=== PATIENT | female | born 1980 | race Caucasian/White ===

== ENCOUNTER 2022-07-10 08:01 | Outpatient (CLI) | payer OTHER, SELFPAY ==
--- NOTE | ~2022-07-10 | US_ITS ---
EXAMINATION: US abdomen limited DATE: 07/10/2022 08:27 INDICATION: Left upper quadrant pain TECHNIQUE: Multiple grayscale and Doppler ultrasound images of the left upper quadrant were obtained. COMPARISON: CT, 07/04/2013 FINDINGS: The spleen measures 12.6 cm. There is a 6 mm hypoechoic area of the spleen which is too sma ll to characterize but likely represents a benign finding such as a cyst or lymphangioma. The left ki dney is normal in appearance and measures 12.4 x 5.3 x 5.4 cm. IMPRESSION: 1. No sonographic correlate for the patient's symptoms. Reviewed, dictated and finalized at location A. [facility] [address]
--- NOTE | ~2022-07-10 | CT_ITS ---
EXAMINATION:CT diagnostic chest wo con DATE: 07/10/2022 08:35 INDICATION: Pulmonary nodule. TECHNIQUE: Computed tomography (CT) of the chest was performed without intravenous contrast. Automate d exposure control and iterative reconstruction technique were employed. The dose-length product (DLP ) was 132.38 mGy-cm. COMPARISON: Chest CT 05/06/2010 FINDINGS: A calcified right lung nodule is consistent with old granulomatous disease. There is a 3 mm nodule in right middle lobe, likely benign. There is a pneumatocele in right lower lobe. No pleural effusion. The heart size is normal. No pericardial effusion. There is diffuse hepatic steatosis. Ther e is mild thoracic spondylosis. IMPRESSION: 1. Benign lung nodules. Reviewed, dictated and finalized at location A. [employer] IMPRESSION: 1. Benign lung nodules.
== END 2022-07-10 08:02 ==
PROVIDERS: PCP Pediatrics; Visit Provider Nurse Practitioner Family
DX: R10.12 Left upper quadrant pain (principal); R07.9 Chest pain, unspecified; R91.1 Solitary pulmonary nodule; M25.50 Pain in unspecified joint; G89.4 Chronic pain syndrome; R53.82 Chronic fatigue, unspecified
CPT/HCPCS: 71250; 76705

== ENCOUNTER → 2023-01-30 10:22 | Outpatient (CLI) | payer BC, SELFPAY ==
--- NOTE | ~2023-01-30 | US_ITS ---
US abdomen limited 01/30/2023 10:47 Indication: Left upper quadrant pain Procedure: High-resolution Limited ultrasound of the left upper abdomen Comparison: Ultrasound dated 07/10/2022 Findings: Stable small 7 x 5 x 5 mm hypoechoic splenic mass, most likely benign. Spleen measures 11.1 cm. Left renal echotexture is unremarkable without hydronephrosis, mass or stone. Left kidney measur es 10.7 cm. Impression: 1: Stable small 7 mm hypoechoic splenic mass, most likely benign cyst or hemangioma. Reviewed, dictated and finalized at location L. Impression: 1: Stable small 7 mm hypoechoic splenic mass, most likely benign cyst or sarah ioma.
== END ==
PROVIDERS: PCP Nurse Practitioner Family; Visit Provider Nurse Practitioner Family
DX: R10.12 Left upper quadrant pain (principal); R91.1 Solitary pulmonary nodule; R53.82 Chronic fatigue, unspecified; G89.4 Chronic pain syndrome; D73.4 Cyst of spleen
CPT/HCPCS: 76705

== ENCOUNTER → 2023-02-10 08:58 | Outpatient (CLI) | payer BC, SELFPAY ==
--- NOTE | ~2023-02-10 | MM_ITS ---
EXAMINATION: MM screening [facility] BI w thom HISTORY: Screening mammogram TECHNIQUE: Craniocaudal and mediolateral oblique 3-D tomosynthesis images were obtained and synthetic 2-D images were generated. CAD analysis was submitted and interpreted. COMPARISON: 05/2010 diagnostic left mammogram and left breast ultrasound examination BREAST PARENCHYMAL COMPOSITION: There are scattered areas of fibroglandular density. FINDINGS: History of prior benign 10:00 left breast biopsy in 2010. There is a 10 mm circumscribed mass in the upper outer quadrant left breast. Diagnostic left mammogra m and left breast ultrasound examination are recommended. No suspicious mass, architectural distortion, microcalcifications, skin thickening or retraction of e ither breast is noted otherwise. IMPRESSION: 1. 10 mm upper outer quadrant left breast mass 2. Diagnostic left mammogram and left breast ultrasound examination are recommended. BI-RADS Category 0: Incomplete: Needs additional imaging evaluation. Reviewed, dictated and finalized at location A. IMPRESSION: 1. 10 mm upper outer quadrant left breast mass 2. Diagnostic left mammogram and left breast ultrasound examination are recomme nded. BI-RADS Category 0: Incomplete: Needs additional imaging evaluation.
== END ==
PROVIDERS: PCP Nurse Practitioner Family; Visit Provider Nurse Practitioner Family
DX: Z12.31 Encounter for screening mammogram for malignant neoplasm of breast (principal); R92.8 Other abnormal and inconclusive findings on diagnostic imaging of breast
CPT/HCPCS: 77063; 77067

== ENCOUNTER → 2023-02-13 11:51 | Outpatient (CLI) | payer BC, OTHER, SELFPAY ==
--- NOTE | ~2023-02-13 | MMUS_ITS ---
Corrected Report Order # Associated See Bolded Text 02/13/2023 SLJ This report was recreated on 02/13/2023. Original report was signed by signed by Usman Jay M.D. on 02/13/2023 12:48 CDT . EXAMINATION: MM diagnostic alyssa LT w thom , US breast LT limited HISTORY: 10 mm upper outer quadrant left breast mass reported on 02/10/2023 screening mammogram TECHNIQUE: Additional 3-D tomosynthesis images of the left breast were performed and synthetic 2-D images were generated. CAD analysis was submitted and interpreted. High resolution upper outer quadrant left breast ultrasound was performed. COMPARISON: 02/10/2023 bilateral screening mammogram 1. diagnostic left mammogram FINDINGS: MAMMOGRAPHIC FINDINGS: There is an approximately 8.5 x 9.5 mm circumscribed oval mass in the upper outer quadrant of the left breast at mid depth. There is halo sign (coned compression MLO Tomosynthesis image 18/80), usually associated with benign lesions. ULTRASOUND: 2:00 4 cm from nipple: There is a 6.9 x 9.3 x 9 mm circumscribed solid lesion with fatty hilum with vascularity, with the appearance of a lymph node. The cortex is relatively uniform thickness and echogenicity. There is no suspicious shadowing. IMPRESSION: 1. Probable benign lymph node at 2:00 4 cm from nipple 2. 6 month diagnostic left mammogram and left breast ultrasound follow-up are recommended BI-RADS category 3, probably benign findings. Reviewed, dictated and finalized at location A. MTDD IMPRESSION: 1. Probable benign lymph node at 2:00 4 cm from nipple 2. 6 month diagnostic left mammogram and left breast ultrasound follow-up are r ecommended BI-RADS category 3, probably benign findings.
== END ==
PROVIDERS: PCP Nurse Practitioner Family; Visit Provider Nurse Practitioner Family
DX: N63.21 Unspecified lump in the left breast, upper outer quadrant (principal); R92.8 Other abnormal and inconclusive findings on diagnostic imaging of breast; N64.9 Disorder of breast, unspecified
CPT/HCPCS: 76642; 77061; 77062; 77065; 77066; G0279

== ENCOUNTER 2023-04-20 13:29 | Outpatient (CLI) | payer BC, OTHER, SELFPAY ==
--- NOTE | ~2023-04-20 | CT_ITS ---
EXAMINATION: CT soft tissue neck w con DATE: 04/20/2023 13:49 INDICATION: Neck swelling. Right supraclavicular lymphadenopathy. TECHNIQUE: Computed tomography (CT) of the neck was performed with 75 mL Omnipaque-350 intravenous co ntrast. Automated exposure control and iterative reconstruction technique were employed. The dose-servando gth product was 402.06 mGy-cm. COMPARISON: None FINDINGS: There are no pathologically enlarged lymph nodes. There is minimal plaque in the proximal i nternal carotid arteries with 0% stenosis relative to normal distal artery lumen diameters. There is moderate spondylosis at C5-C6 and mild spondylosis at other levels. IMPRESSION: 1. No lymphadenopathy. Reviewed, dictated and finalized at location A. [employer] IMPRESSION: 1. No lymphadenopathy.
== END 2023-04-20 13:30 ==
LOC: MICIMG 13:30
PROVIDERS: PCP Pediatrics; Visit Provider Pediatrics
DX: R22.1 Localized swelling, mass and lump, neck (principal)
CPT/HCPCS: 70491; Q9967

== ENCOUNTER 2023-05-04 04:03 | Day surgery (SDC) | payer OTHER, BC, SELFPAY ==
[2023-04-13 09:47] VITALS: BMI 37.8
--- NOTE | 2023-05-02 09:56 | SUR.PREOP ---
Patient called regarding upcoming procedure. Message left on pt's voicemail regarding appointment times.
[2023-05-04] MEDS: LACTATED RINGERS 1,000 ML 150 ML IV CONT (07:54)
[2023-05-04 07:56] VITALS: BP 142/89; PULSE 69; RESP 16; TEMP 36.6; O2SAT 100
--- NOTE | 2023-05-04 08:18 | P.HP_ITS ---
History of Present Illness History of Present Illness Consent: Risks, benefits, and alternatives have been discussed and questions answered. Patient agrees to proceed with procedure. Chief complaint: Epigastric Abdominal Pain Narrative: Brittney Garcia is a 42 year old female Presents for both colonoscopy and EGD. Patient reports a vague left upper quadrant abdominal pain. Pain located at the edge of the left ribcage. It occurs intermittently sometimes for various periods of time. Knots particularly related to eating or with activity. Colonoscopy an EGD or requested to evaluate more thoroughly. Patient also presents for neoplasia screening because of her age. Family history noncontributory. Review of Systems Review of Systems: Review of systems noncontributory. [facility] Family History Family History (Updated 01/01/14 @ 07:13 by DOCTOR UNKNOWN) Mother Hypertension Grandparent Malignant neoplasm of prostate Other Diabetes mellitus Family history of allergic disorder Family history of cardiovascular disease Family history of coronary artery disease Social History Social History (Updated 02/27/23 @ 15:22 by Carole Barahona MA) Smoking packs per day: 0 Smoking cigarettes per day: 0.0 Smoking status: Never smoker Second hand tobacco smoke exposure: No Alcohol intake: current Alcohol use details: Rarely Substance use: never Substance use type: does not use Lack of Transportation: No Lack of Food: Never True Current Housing: I Have Housing Concerned About Future Housing: No Difficulty Paying Gas/Electric Bills: No Difficulty Paying for Meds: No Currently Unemployed: No Education: Bachelor's Degree Difficulty w/ Childcare or Family Care: No Living arrangements: other Additional living arrangements comments: with sp Meds Home Medications and Allergies Home Medications Medication Instructions Recorded Confirmed Type No Home Medications 02/27/23 04/13/23 History Allergies Allergy/AdvReac Type Severity Reaction Status Date / Time amoxicillin Allergy Unknown Rash Verified 05/04/23 07:43 Vital Signs Vital Signs - 24 hr 05/04/23 07:56 Temperature 97.9 F Pulse Rate 69 Respiratory Rate 16 Blood Pressure 142/89 H Pulse Oximetry 100 Oxygen Delivery Room Air Exam Narrative: Physical exam reveals patient be alert. Vital signs stable. HEENT exam is unremarkable. Patient is anicteric. Lungs are clear. Heart without murmur. Abdomen reveals patient be overweight. Bowel sounds are present soft nontender with no hepatosplenomegaly. Patient locates abdominal discomfort to the left upper rib margin. Assessment and Plan Assessment and plan (1) Abdominal pain: Qualifiers: Abdominal location: right upper quadrant Qualified Code(s): R10.11 - Right upper quadrant pain Code(s): R10.9 - Unspecified abdominal pain Status: Acute Assessment and Plan: Patient has a vague abdominal discomfort left upper quadrant. This may represent musculoskeletal pain. Colonoscopy an EGD are requested to assess more thoroughly. This will be performed today. Patient would also benefit from neoplasia screening given her age.
--- NOTE | 2023-05-04 08:48 | P.PNAN_ITS ---
Anes - Initial Pre Proc Eval Procedure: Operation Date: 05/04/23 09:00 Proposed Procedures p Esophagogastroduodenoscopy & Colonoscopy - Neeraj Winters MD Date/Time: 05/04/23 08:48 Surgeon: Neeraj Winters MD Pre Op Diagnosis: Epigastric Abdominal Pain Patient Data Age: 42 Gender: F Height: 1.55 m Weight: 91.9 kg Last Vital Signs Temp 97.9 F 05/04/23 07:56 Pulse 69 05/04/23 07:56 Resp 16 05/04/23 07:56 BP 142/89 H 05/04/23 07:56 Pulse Ox 100 05/04/23 07:56 O2 Del Method Room Air 05/04/23 07:56 Allergies Allergy/AdvReac Type Severity Reaction Status Date / Time amoxicillin Allergy Unknown Rash Verified 05/04/23 07:43 Home Medications Medication Instructions Recorded Confirmed Type No Home Medications 02/27/23 04/13/23 History Patient hx anesthesia problems: none Family hx anesthesia problems: none Results Review: All pre-operative results and documents have been reviewed as part of the pre-operative evaluation. [facility] Family History Family History (Updated 01/01/14 @ 07:13 by DOCTOR UNKNOWN) Mother Hypertension Grandparent Malignant neoplasm of prostate Other Diabetes mellitus Family history of allergic disorder Family history of cardiovascular disease Family history of coronary artery disease Social History Social History (Updated 02/27/23 @ 15:22 by Carole Barahona MA) Smoking packs per day: 0 Smoking cigarettes per day: 0.0 Smoking status: Never smoker Second hand tobacco smoke exposure: No Alcohol intake: current Alcohol use details: Rarely Substance use: never Substance use type: does not use Lack of Transportation: No Lack of Food: Never True Current Housing: I Have Housing Concerned About Future Housing: No Difficulty Paying Gas/Electric Bills: No Difficulty Paying for Meds: No Currently Unemployed: No Education: Bachelor's Degree Difficulty w/ Childcare or Family Care: No Living arrangements: other Additional living arrangements comments: with sp Anes - Eval Final PreProcedure Day of Procedure 05/04/23 08:48 Patient weight: normal Heart: regular rate and rhythm Lungs: clear to auscultation Airway: Mallampati scale class II Neurological: alert and oriented Last oral intake: >/= 8 hours ASA classification: III Emergent: no Anesthetic plan: proceed Anesthesia type and monitoring: general GIVS and standard monitoring Results Review: All pre-operative results and documents have been reviewed as part of the pre- operative evaluation. Informed Consent: The patient's anesthetic plan and its attendant risks and benefits were discussed with the patient/family/POA. Questions were solicited and answers provided to the satisfaction of the patient/family/POA.
--- NOTE | 2023-05-04 09:26 | SUR.OPER ---
EGD start 921 end 924, Colonoscopy start 929.
[2023-05-04 09:42] VITALS: BP 135/86; PULSE 70; RESP 19; O2SAT 100
[2023-05-04 09:52] VITALS: BP 131/70; PULSE 73; RESP 20; O2SAT 100
[2023-05-04 10:02] VITALS: BP 146/83; PULSE 56; RESP 20; O2SAT 100
== END 2023-05-04 10:13 | disposition home or self-care (01) ==
PROVIDERS: PCP Pediatrics; Visit Provider Internal Medicine Gastroenterology
PROC: 0DJ08ZZ Inspection of Upper Intestinal Tract, Via Natural or Artificial Opening Endoscopic (ICD-10-PCS; CPT 43235; principal; 2023-05-04 09:00)
DX: Z12.11 Encounter for screening for malignant neoplasm of colon (principal); R10.12 Left upper quadrant pain; Q39.4 Esophageal web
CPT/HCPCS: 45378; 43450; 43239; 87081; J2704; J7120

== ENCOUNTER 2024-11-27 15:29 | Outpatient (CLI) | payer BC, SELFPAY ==
--- NOTE | ~2024-11-27 | MM_ITS ---
EXAMINATION: MM screening [facility] BI w thom HISTORY: Screening TECHNIQUE: Craniocaudal and mediolateral oblique 3-D tomosynthesis images were obtained and synthetic 2-D images were generated. CAD analysis was submitted and interpreted. COMPARISON: 02/10/2023. BREAST PARENCHYMAL COMPOSITION: There are scattered areas of fibroglandular density. FINDINGS: There is no evidence of suspicious mass, calcification, or architectural distortion to sug gest malignancy in either breast. IMPRESSION: 1. No mammographic evidence of malignancy. 2. Recommend routine screening mammography in one year. BI-RADS Category 1: Negative Reviewed, dictated and finalized at location B.
== END 2024-11-27 15:30 | disposition home or self-care (01) ==
LOC: MICIMG 15:30
PROVIDERS: PCP Physician Assistant Medical; Visit Provider Physician Assistant Medical
DX: Z12.31 Encounter for screening mammogram for malignant neoplasm of breast (principal)
CPT/HCPCS: 77063; 77067